=== PATIENT | female | born 1995 | race Caucasian/White ===

== ENCOUNTER 2020-10-08 18:46 | Outpatient (REF) | payer OTHER, SELFPAY | END 2020-10-08 18:47 | disposition home or self-care (01) | LOC: HO.LNP 18:46 | PROVIDERS: Visit Provider Internal Medicine | DX: Z20.822 Contact with and (suspected) exposure to COVID-19 (principal); J06.9 Acute upper respiratory infection, unspecified | CPT/HCPCS: U0003 ==